=== PATIENT | female | born 1975 | race Caucasian/White ===

== ENCOUNTER 2016-11-06 19:00 | Emergency (ER) | payer MEDICAID ==
[~2016-11-06] VITALS: Ht 170.2 cm; Wt 99.5 kg
[2016-11-06 19:02] VITALS: BP 154/107
[2016-11-06 19:50] LABS: ASPARTATE AMINO TRANSFERASE 13 U/L (15-37); BLOOD UREA NITROGEN 18 mg/dL (7-18)
[2016-11-06] MEDS ORDERED: CEFTRIAXONE 250 MG ONE (20:12)
[2016-11-06] MEDS ORDERED: AZITHROMYCIN 500 MG TABLET ONE (20:12)
[2016-11-06] MEDS ORDERED: CEFTRIAXONE 250 MG IM ONE (20:30)
[2016-11-06] MEDS ORDERED: AZITHROMYCIN 500 MG TABLET PO ONE (20:30)
== END 2016-11-06 20:59 | disposition home or self-care (01) ==
LOC: ED 20:53
DX: A59.01 Trichomonal vulvovaginitis (principal); N30.01 Acute cystitis with hematuria
CPT/HCPCS: 36415; 80053; 81001; 84703; 85025; 87086; 87210; 87491; 87591; 87808; 99284

== ENCOUNTER 2017-05-11 18:28 | Emergency (ER) | payer MEDICAID ==
[~2017-05-11] VITALS: Ht 170.2 cm; Wt 94.2 kg
[2017-05-11 18:30] VITALS: BP 165/105
== END 2017-05-11 20:34 | disposition left against medical advice (07) ==
LOC: ED 20:28
DX: Z53.21 Procedure and treatment not carried out due to patient leaving prior to being seen by health care provider (principal)

== ENCOUNTER 2018-10-14 03:16 | Emergency (ER) | payer MEDICAID ==
[~2018-10-14] VITALS: Ht 172.7 cm; Wt 94.0 kg
[2018-10-14 03:19] VITALS: BP 165/128
== END 2018-10-14 04:01 | disposition home or self-care (01) ==
LOC: ED 03:51
DX: S63.262A Dislocation of metacarpophalangeal joint of right middle finger, initial encounter (principal); F17.200 Nicotine dependence, unspecified, uncomplicated; W22.8XXA Striking against or struck by other objects, initial encounter; Y93.89 Activity, other specified; Y92.009 Unspecified place in unspecified non-institutional (private) residence as the place of occurrence of the external cause; Y99.8 Other external cause status
CPT/HCPCS: 26700; 99284